=== PATIENT | male | born 1960 | race Caucasian/White ===

== ENCOUNTER 2022-03-21 15:25 | Emergency (ER) | payer OTHER, BC ==
[~2022-03-21] VITALS: Ht 177.8 cm; Wt 70.7 kg
[~2022-03-21 15:25] MED LIST: MIRTAZAPINE7.5 MG PO
[2022-03-21] MEDS ORDERED: HYDROCODON-ACE1 EA10 PO (16:30)
== END 2022-03-21 16:42 | disposition home or self-care (01) ==
LOC: ED 15:25
DX: S92.425A Nondisplaced fracture of distal phalanx of left great toe, initial encounter for closed fracture (principal); S92.535A Nondisplaced fracture of distal phalanx of left lesser toe(s), initial encounter for closed fracture; W20.8XXA Other cause of strike by thrown, projected or falling object, initial encounter
CPT/HCPCS: 73630; 99283-25